=== PATIENT | female | born 1985 | race Caucasian/White ===

== ENCOUNTER 2017-09-06 10:37 | Emergency (ER) | payer OTHER ==
--- NOTE | 2017-09-06 13:48 | RAD ---
HISTORY: Chest pain COMPARISONS: None VIEWS: 4: Frontal dual-energy and lateral views of the chest. FINDINGS: CARDIOMEDIASTINAL SILHOUETTE: The cardiomediastinal silhouette is normal. RACHEL: The rachel are normal. PLEURA: The costophrenic angles are sharp. No pleural abnormalities are noted. LUNG PARENCHYMA: The lungs are clear. ABDOMEN: The upper abdomen is clear. There is no subphrenic gas. BONES AND SOFT TISSUES: No bone or soft tissue abnormalities are noted. OTHER: None. IMPRESSION: NO ACTIVE CARDIOPULMONARY DISEASE.
[2017-09-06 14:16] VITALS: BP 136/82
--- NOTE | 2017-09-06 18:22 | ED ---
Joey Thornton Thomas, scribed for Polo Kelsey MD on 09/06/17 at 1335 . Complex/Multi-Sys Presentation - HPI Summary HPI Summary: The patient is a 32 year old female presenting with a nonproductive cough, headache, and fever for the last three days. She is afebrile in the ED. She denies nausea, vomiting, and diarrhea. She is a current smoker. - History Of Current Complaint Chief Complaint: EDFluSymptoms Time Seen by Provider: 09/06/17 13:08 Hx Obtained From: Patient Onset/Duration: Lasting Days - 3, Still Present Timing: Constant Severity Currently: Moderate Location: Negative Aggravating Factor(s): Nothing Alleviating Factor(s): Nothing Associated Signs And Symptoms: Positive: Other - Cough, SCHMITT, fever; NEGATIVE: nausea, vomiting, diarrhea Related History: Other - Ptaient is a current smoker - Allergies/Home Medications Allergies/Adverse Reactions: Allergies Allergy/AdvReac Type Severity Reaction Status Date / Time No Known Allergies Allergy Verified 09/06/17 13:16 PMH/Surg Hx/FS Hx/Imm Hx Endocrine/Hematology History: Denies: Hx Anticoagulant Therapy, Hx Diabetes, Hx Thyroid Disease Cardiovascular History: Denies: Hx Hypertension, Hx Pacemaker/ICD Respiratory History: Denies: Hx Asthma, Hx Chronic Obstructive Pulmonary Disease (COPD) History: Denies: Hx Renal Disease Neurological History: Denies: Hx Dementia, Hx Seizures Psychiatric History: Denies: Hx Substance Abuse Infectious Disease History: No Infectious Disease History: Denies: Hx Hepatitis, Hx Human Immunodeficiency Virus (HIV), History Other Infectious Disease, Traveled Outside the [place] in Last 30 Days - Family History Known Family History: Positive: Hypertension, Diabetes - Social History Alcohol Use: None Substance Use Type: Reports: None Smoking Status (MU): Light Every Day Tobacco Smoker Type: Cigarettes Amount Used/How Often: 1/2 PPD Review of Systems Positive: Fever Positive: Cough Negative: Vomiting, Diarrhea, Nausea Positive: Headache All Other Systems Reviewed And Are Negative: Yes Physical Exam - Summary Physical Exam Summary: VITAL SIGNS: Reviewed. GENERAL: Patient is a well-developed and nourished female who is lying comfortable in the stretcher. Patient is not in any acute respiratory distress. HEAD AND FACE: No signs of trauma. No ecchymosis, hematomas or skull depressions. No sinus tenderness. EYES: PERRLA, EOMI x 2, No injected conjunctiva, no nystagmus. EARS: Hearing grossly intact. Ear canals and tympanic membranes are within normal limits. NOSE: Nasal discharge. MOUTH: Oropharynx within normal limits. Pharyngeal erythema. NECK: Supple, trachea is midline, no adenopathy, no JVD, no carotid bruit, no c- spine tenderness, neck with full ROM. CHEST: Wheezing. LUNGS: Clear to auscultation bilaterally. No wheezing or crackles. CVS: Regular rate and rhythm, S1 and S2 present, no murmurs or gallops appreciated. ABDOMEN: Soft, non-tender. No signs of distention. No rebound no guarding, and no masses palpated. Bowel sounds are normal. EXTREMITIES: FROM in all major joints, no edema, no cyanosis or clubbing. NEURO: Alert and oriented x 3. No acute neurological deficits. Speech is normal and follows commands. SKIN: Dry and warm Triage Information Reviewed: Yes Vital Signs On Initial Exam: Initial Vitals Temp Pulse Resp BP Pulse Ox 98.1 F 112 18 145/120 97 09/06/17 10:42 09/06/17 10:42 09/06/17 10:42 09/06/17 10:42 09/06/17 10:42 Vital Signs Reviewed: Yes Diagnostics - Vital Signs Vital Signs Temp Pulse Resp BP Pulse Ox 09/06/17 13:07 104 96 09/06/17 13:06 139/90 09/06/17 10:42 98.1 F 112 18 145/120 97 - Laboratory Lab Results: Lab Results 09/06/17 Range/Units 12:17 Beta HCG, Quant < 0.60 mIU/mL Lab Statement: Any lab studies that have been ordered have been reviewed, and results considered in the medical decision making process. - Radiology CXR Xray Interpretation: No Acute Changes - NO ACTIVE CARDIOPULMONARY DISEASE. Dr. Kelsey has reviewed this report. Radiology Interpretation Completed By: Radiologist Complex Multi-Symp Course/Dx Assessment/Plan: The patient is a 32 year old female presenting with a nonproductive cough, headache, and fever for the last three days. She is afebrile in the ED. She denies nausea, vomiting, and diarrhea. She is a current smoker. Influenza A and B are negative. CXR is negative. The patient still has a productive cough with phlegm, therefore she will be given antibiotics and will follow up with her primary care provider. The patient is hemodynamically stable and alert and oriented x 3. - Diagnoses Provider Diagnoses: Bronchitis Discharge - Discharge Plan Condition: Stable Disposition: HOME Prescriptions: Azithromyxin DHRUV (NF) [Z-Dhruv (Zithromax) 250 mg tabs #6] 2 tab PO .TODAY, THEN 1 DAILY #6 tab Patient Education Materials: Acute Bronchitis (ED) Referrals: [facility] [place] PHYSICIAN REFERRAL [Outside] - 3 Days Additional Instructions: Follow up with your primary care physician in three days. If you do not have a primary care provider, you can use the [facility] physician referral service to find one and make an appointment. Return to the emergency department for any new or worsening symptoms. The documentation as recorded by the Joey quach Thomas accurately reflects the service I personally performed and the decisions made by me, Polo Kelsey MD.
== END 2017-09-06 14:19 | disposition home or self-care (01) ==
LOC: ED 10:37
DX: J40 Bronchitis, not specified as acute or chronic (principal); F17.210 Nicotine dependence, cigarettes, uncomplicated
CPT/HCPCS: 36415; 71046; 84702; 87502; 99282